=== PATIENT | female | born 1975 | race Asian ===

== ENCOUNTER 2020-07-04 07:21 | Day surgery (SDC) | payer BC ==
[~2020-07-04] VITALS: Ht 165.1 cm; Wt 71.0 kg
[~2020-07-04 07:21] MED LIST: FERSU300 PO; MULVITA PO
--- NOTE | 2020-07-04 08:00 | NUR ---
Ambulatory in Day Surgery. History, Chart, Medications and Allergies reviewed before start of procedure. Lungs clear T/O to Auscultation. Patient confirms NPO status and agrees with scheduled surgery. Pre-Op teaching done. Pt verbalizes understanding.
--- NOTE | 2020-07-04 11:15 | NUR ---
ALL DC INSTRUCTIONS GONE OVER, ALL QUESTIONS ANSWERED. PT CHANDA PO FLUIDS WELL. UP TO CHANGE CLOTHES, PAD GIVEN. STEADY ON FEET. PAIN MED GIVEN BEFORE DC. OUT WITH DC VOLUNTEER ON WC TO ,
== END 2020-07-04 11:15 | disposition home or self-care (01) ==
LOC: ORSCMMR 07:21 → ORD 11:00 → ORSCMMR 11:00
PROVIDERS: Obstetrics & Gynecology
PROC: 0UDB8ZX Extraction of Endometrium, Via Natural or Artificial Opening Endoscopic, Diagnostic (ICD-10-PCS; principal; 2020-07-04 08:30)
DX: N93.8 Other specified abnormal uterine and vaginal bleeding (principal); R93.89 Abnormal findings on diagnostic imaging of other specified body structures; N81.2 Incomplete uterovaginal prolapse; D50.0 Iron deficiency anemia secondary to blood loss (chronic); J44.9 Chronic obstructive pulmonary disease, unspecified
CPT/HCPCS: 88305; A9270; J1100; J1885; J2405; J2704; J3010; J7120

== ENCOUNTER 2020-09-13 06:18 | Day surgery (SDC) | payer BC ==
[~2020-09-13] VITALS: Ht 165.1 cm; Wt 67.6 kg
--- NOTE | 2020-09-13 07:14 | NUR ---
History, Chart, Medications and Allergies reviewed before start of procedure. Lungs clear T/O to Auscultation. Patient confirms NPO status and agrees with scheduled surgery. Pre-Op teaching done. Pt verbalizes understanding. Patient reports completing Chlorhexadine shower X2 prior to admission to hospital.
--- NOTE | 2020-09-13 11:30 | NUR ---
PT ARRIVED TO FLOOR FROM PACU SLEEPING SOUNDLY. TURNS HEAD WHEN SPOKEN TO BUT DOES NOT WAKE OR OPEN EYES. VSS. CALL LIGHT IN REACH. FLUIDS RUNNING PER ORDERS. BANDAIDS TO LAP SITES X2. HEARD DRAINING CLEAR YELLOW URINE. CALL LIGHT IN REACH.
--- NOTE | 2020-09-13 12:06 | NUR ---
LABS DRAWING BLOOD
[2020-09-13 12:16] LABS: BASOPHILS ABSOLUTE AUTO 0.02 K/mm3 (0.00-0.23); BASOPHILS PERCENT AUTO 0 % (0-2); EOSINOPHILS PERCENT AUTO 0 % (0-6); Hematocrit 22.4 % (33.0-51.0); Hemoglobin 6.7 g/dL (11.5-16.0); IMMATURE GRAN ABSOLUTE AUTO 0.05 K/mm3 (0.00-0.10); IMMATURE GRAN PERCENT AUTO 0 % (0-1); LYMPHOCYTES ABSOLUTE AUTO 0.72 K/mm3 (0.84-5.20); LYMPHOCYTES PERCENT AUTO 6 % (21-46); MONOCYTES ABSOLUTE AUTO 0.18 K/mm3 (0.16-1.47); MONOCYTES PERCENT AUTO 2 % (4-13); Mean Corpuscular HGB 24.5 pg (26.0-34.0); Mean Corpuscular HGB Conc 29.9 g/dL (31.5-36.5); Mean Corpuscular Volume 82 fL (80-100); Mean Platelet Volume 9.5 fL (9.1-12.4); NEUTROPHILS ABSOLUTE AUTO 11.21 K/mm3 (1.96-9.15); NEUTROPHILS PERCENT AUTO 92 % (41-73); Platelet Count 288 K/mm3 (150-400); RDW Coefficient Variation 18.4 % (11.7-14.2); RDW Standard Deviation 53.9 fL (35.1-46.3); Red Blood Cell Count 2.73 M/mm3 (3.80-5.20); White Blood Cell Count 12.18 K/mm3 (4.00-11.30)
--- NOTE | 2020-09-13 14:02 | NUR ---
BP HYPOTENSIVE AND HGB 6.[address] BUNN. ORDERS OBTAINED.
--- NOTE | 2020-09-13 16:40 | NUR ---
PRBCS TRANSFUSING PT CONTINUES TO BE HYPOTENSIVE. HR, 02 SATS AND RR WNL. PT WAKES TO VOICE THEN RETURNS TO SLEEP. PRBC'S INFUSING PER ORDERS. SPOUSE AT BEDSIDE. CALL LIGHT IN REACH.
--- NOTE | 2020-09-13 17:17 | NUR ---
TURNING OVER CARE TO RADHA Moody RN.
--- NOTE | 2020-09-13 17:47 | NUR ---
1717 assumed care of patient. pt smiling and visiting with her . pt eating regular diet. pt reports pain is adequately controlled. rbc's infusing at this time
--- NOTE | 2020-09-13 18:26 | NUR ---
SCANT BLOODY DRAINAGE ON PERIPAD
[2020-09-13 19:59] LABS: BASOPHILS PERCENT AUTO 0 % (0-2); EOSINOPHILS PERCENT AUTO 0 % (0-6); Hematocrit 22.7 % (33.0-51.0); Hemoglobin 7.2 g/dL (11.5-16.0); IMMATURE GRAN ABSOLUTE AUTO 0.06 K/mm3 (0.00-0.10); IMMATURE GRAN PERCENT AUTO 1 % (0-1); LYMPHOCYTES ABSOLUTE AUTO 0.66 K/mm3 (0.84-5.20); LYMPHOCYTES PERCENT AUTO 7 % (21-46); MONOCYTES ABSOLUTE AUTO 0.26 K/mm3 (0.16-1.47); MONOCYTES PERCENT AUTO 3 % (4-13); Mean Corpuscular HGB 26.4 pg (26.0-34.0); Mean Corpuscular HGB Conc 31.7 g/dL (31.5-36.5); Mean Corpuscular Volume 83 fL (80-100); Mean Platelet Volume 9.1 fL (9.1-12.4); NEUTROPHILS ABSOLUTE AUTO 8.59 K/mm3 (1.96-9.15); NEUTROPHILS PERCENT AUTO 90 % (41-73); Platelet Count 241 K/mm3 (150-400); RDW Coefficient Variation 19.3 % (11.7-14.2); RDW Standard Deviation 57.5 fL (35.1-46.3); Red Blood Cell Count 2.73 M/mm3 (3.80-5.20); White Blood Cell Count 9.57 K/mm3 (4.00-11.30)
[2020-09-13 22:14] LABS: BASOPHILS ABSOLUTE AUTO 0.01 K/mm3 (0.00-0.23); BASOPHILS PERCENT AUTO 0 % (0-2); EOSINOPHILS PERCENT AUTO 0 % (0-6); Hematocrit 21.9 % (33.0-51.0); Hemoglobin 6.9 g/dL (11.5-16.0); IMMATURE GRAN ABSOLUTE AUTO 0.02 K/mm3 (0.00-0.10); IMMATURE GRAN PERCENT AUTO 0 % (0-1); LYMPHOCYTES ABSOLUTE AUTO 0.81 K/mm3 (0.84-5.20); LYMPHOCYTES PERCENT AUTO 9 % (21-46); MONOCYTES ABSOLUTE AUTO 0.46 K/mm3 (0.16-1.47); MONOCYTES PERCENT AUTO 5 % (4-13); Mean Corpuscular HGB 26.2 pg (26.0-34.0); Mean Corpuscular HGB Conc 31.5 g/dL (31.5-36.5); Mean Corpuscular Volume 83 fL (80-100); Mean Platelet Volume 9.4 fL (9.1-12.4); NEUTROPHILS ABSOLUTE AUTO 7.93 K/mm3 (1.96-9.15); NEUTROPHILS PERCENT AUTO 86 % (41-73); Platelet Count 247 K/mm3 (150-400); RDW Standard Deviation 57.3 fL (35.1-46.3); Red Blood Cell Count 2.63 M/mm3 (3.80-5.20); White Blood Cell Count 9.23 K/mm3 (4.00-11.30)
--- NOTE | 2020-09-14 05:08 | NUR ---
SHIFT SUMMARY: PT POD#1 LAVH. A&O X4. LAP SITES TO ABD C/D/I WITH BANDAIDS IN PLACE. SCANT AMOUNT OF DRAINAGE ON ERIN PAD. PAIN BEING MANAGED WITH TORADOL AND NORCO PER EMAR. PT TOLERATING REGULAR DIET. DENIES FLATUS. HYPOTENSIVE MAJORITY OF SHIFT IN 90'S/50'S. HR STABLE. PT REPORTS OCC DIZZINESS WHEN STAFF ADJUSTS THE BED. PT CURRENTLY RECIEVING 1 UNIT PRBC'S PER ORDERS. TOLERATING TRANSFUSION WELL. HEARD PATENT AND DRAINING CLEAR YELLOW URINE. PT HAS NOT BEEN OUT OF BED SINCE SURGERY D/T BP AND RBC'S. WILL ATTEMPT TO AMBULATE ONCE TRANSFUSION IS COMPLETE AND BP IS STABLE/PT DENIES DIZZINESS.
--- NOTE | 2020-09-14 07:42 | NUR ---
09/14/20 0742 Cynthia Bravo VERIFICATIONS: EDIT CHART.
[2020-09-14 08:42] LABS: BASOPHILS ABSOLUTE AUTO 0.02 K/mm3 (0.00-0.23); BASOPHILS PERCENT AUTO 0 % (0-2); EOSINOPHILS ABSOLUTE AUTO 0.02 K/mm3 (0.00-0.68); EOSINOPHILS PERCENT AUTO 0 % (0-6); Hematocrit 27.3 % (33.0-51.0); Hemoglobin 8.6 g/dL (11.5-16.0); IMMATURE GRAN ABSOLUTE AUTO 0.02 K/mm3 (0.00-0.10); IMMATURE GRAN PERCENT AUTO 0 % (0-1); LYMPHOCYTES PERCENT AUTO 21 % (21-46); MONOCYTES ABSOLUTE AUTO 0.72 K/mm3 (0.16-1.47); MONOCYTES PERCENT AUTO 8 % (4-13); Mean Corpuscular HGB 26.7 pg (26.0-34.0); Mean Corpuscular HGB Conc 31.5 g/dL (31.5-36.5); Mean Corpuscular Volume 85 fL (80-100); Mean Platelet Volume 9.3 fL (9.1-12.4); NEUTROPHILS ABSOLUTE AUTO 6.56 K/mm3 (1.96-9.15); NEUTROPHILS PERCENT AUTO 71 % (41-73); Platelet Count 243 K/mm3 (150-400); RDW Coefficient Variation 18.2 % (11.7-14.2); RDW Standard Deviation 56.2 fL (35.1-46.3); Red Blood Cell Count 3.22 M/mm3 (3.80-5.20); White Blood Cell Count 9.24 K/mm3 (4.00-11.30)
--- NOTE | 2020-09-14 11:23 | NUR ---
Patient is lying in bed and alert. Patient tells me about her move to [place] from [place], about her spouse and about her hopes that her "numbers would regulate" so she could go home. She tells me that her [id number] with stage 4 COPD lives with her and her and so they are very careful to follow CDC guidelines. I normalize her experience and provide therapeutic listening and prayer. Patient responds well and shows signs of increased peace. I will continue to remain available to patient and family.
[2020-09-14 14:34] LABS: BASOPHILS ABSOLUTE AUTO 0.03 K/mm3 (0.00-0.23); BASOPHILS PERCENT AUTO 0 % (0-2); EOSINOPHILS ABSOLUTE AUTO 0.03 K/mm3 (0.00-0.68); EOSINOPHILS PERCENT AUTO 0 % (0-6); Hematocrit 26.6 % (33.0-51.0); Hemoglobin 8.4 g/dL (11.5-16.0); IMMATURE GRAN ABSOLUTE AUTO 0.02 K/mm3 (0.00-0.10); IMMATURE GRAN PERCENT AUTO 0 % (0-1); LYMPHOCYTES ABSOLUTE AUTO 1.38 K/mm3 (0.84-5.20); LYMPHOCYTES PERCENT AUTO 19 % (21-46); MONOCYTES PERCENT AUTO 8 % (4-13); Mean Corpuscular HGB 26.6 pg (26.0-34.0); Mean Corpuscular HGB Conc 31.6 g/dL (31.5-36.5); Mean Corpuscular Volume 84 fL (80-100); Mean Platelet Volume 9.4 fL (9.1-12.4); NEUTROPHILS ABSOLUTE AUTO 5.31 K/mm3 (1.96-9.15); NEUTROPHILS PERCENT AUTO 72 % (41-73); Platelet Count 253 K/mm3 (150-400); RDW Coefficient Variation 18.3 % (11.7-14.2); RDW Standard Deviation 56.7 fL (35.1-46.3); Red Blood Cell Count 3.16 M/mm3 (3.80-5.20); White Blood Cell Count 7.37 K/mm3 (4.00-11.30)
[2020-09-14] MEDS ORDERED: MOTRIN IB200 MG PO (15:56)
[2020-09-14] MEDS ORDERED: Percocet 5-3251 EACH PO (15:56)
--- NOTE | 2020-09-14 16:34 | NUR ---
DISCHARGE NOTE: PATIENT AND PATIENTS WERE EDUCATED ON DISCHARGE INSTRUCTIONS. PATIENT AND VERBALIZED UNDERSTANDING OF DISCHARGE INSTRUCTIONS. HER HARD PERSCRIPTION IS PLACED IN THE FOLDER THAT IS IN A BAG WITH HER ITEMS. PATIENT IS ALERT AND ORIENTED X4. VS ARE WNL AND IS ON RA. PAIN IS MANAGED WITH PO PAIN MEDICATIONS. PATIENT HAS VOIDED AND IS TOLERATING PO INTAKE. SHE HAS AMBULATED THE HALLWAYS WELL. IV WAS TAKEN OUT AND WAS WNL. SHE IS BEING WHEELCHAIRED OUT TO THE HER HUSBANDS CAR TO BE TAKEN HOME. PATIENT HAS HER PERSONAL ITEMS WITH HER.
== END 2020-09-14 16:20 | disposition home or self-care (01) ==
LOC: ORSCMMR 06:18 → ORD 07:30 → ORSCMMR 07:30 → SURS 11:10 → ORSCMMR 09-14 16:20
PROVIDERS: Obstetrics & Gynecology
PROC: 0UT6FZZ Resection of Left Fallopian Tube, Via Natural or Artificial Opening With Percutaneous Endoscopic Assistance (ICD-10-PCS; principal; 2020-09-13 07:30)
PROC: 0UT9FZZ Resection of Uterus, Via Natural or Artificial Opening With Percutaneous Endoscopic Assistance (ICD-10-PCS; principal; 2020-09-13 07:30)
DX: N93.9 Abnormal uterine and vaginal bleeding, unspecified (principal); D64.9 Anemia, unspecified
CPT/HCPCS: 36415; 36430; 85025; 86850; 86900; 86901; 86920; 86923; 88307; A9270; J0171; J0690; J1100; J1170; J1885; J2060; J2270; J2370; J2405; J2704; J3010; J7120; P9016

== ENCOUNTER → 2021-02-20 | Outpatient (CLI) | payer BC ==
[~2021-02-20] MED LIST changes: +MOTRIN IB200 MG PO; +Percocet 5-3251 EACH PO
== END | disposition home or self-care (01) ==
LOC: LAB SHORT 08:40 → LAB 08:40
DX: R10.9 Unspecified abdominal pain (principal)
CPT/HCPCS: 87086

== ENCOUNTER → 2021-03-19 | Outpatient (CLI) | payer BC ==
[2021-03-19 13:48] LABS: Candida species (DNA Probe) Negative (NEGATIVE); G. vaginalis (DNA Probe) Positive (NEGATIVE); T. vaginalis (DNA Probe) Negative (NEGATIVE)
[2021-03-21 02:10] LABS: CHLAMYDIA TRACHOMATIS, NAA Negative (Negative)
== END | disposition home or self-care (01) ==
LOC: LAB SHORT 09:02
PROVIDERS: Family Medicine
DX: R10.9 Unspecified abdominal pain (principal)
CPT/HCPCS: 87480; 87491; 87510; 87591; 87660